=== PATIENT | female | born 1990 | race African-American/Black ===

== ENCOUNTER 2017-09-10 01:10 | Emergency (ER) | payer SELFPAY ==
[2017-09-10] MEDS ORDERED: SODIUM CHLORIDE 1,000 ML IV STA (01:40)
[2017-09-10] MEDS ORDERED: ONDANSETRON 4 MG/2 ML VIAL IVPB ONE (01:40)
[2017-09-10 01:50] LABS: BASO % 1.2 % (0-2.0); EOS % 0.8 % (0-4.5); HEMATOCRIT 37.7 % (32.4-45.2); HEMOGLOBIN 12.8 GM/dL (10.7-15.3); LYMPH % 43.1 % (8-40); MCH 30.5 pg (25.7-33.7); MCHC 34.1 g/dl (32.0-36.0); MEAN CELL VOLUME 89.5 fl (80-96); MEAN PLT VOLUME 8.6 fl (7.5-11.1); MONO % 7.4 % (3.8-10.2); NEUT % 47.5 % (42.8-82.8); PLATELET COUNT 252 K/MM3 (134-434); RBC 4.21 M/mm3 (3.60-5.2); RDW 12.4 % (11.6-15.6); WHITE BLOOD COUNT 7.7 K/mm3 (4.0-10.0)
--- NOTE | 2017-09-10 02:13 | PDOC ---
ED Treatment Course - LABORATORY CBC & Chemistry Diagram: 09/10/17 01:38 09/10/17 01:38 - ADDITIONAL ORDERS Additional order review: 09/10/17 01:38 RBC 4.21 MCV 89.5 MCHC 34.1 RDW 12.4 MPV 8.6 Neutrophils % 47.5 Lymphocytes % 43.1 H Monocytes % 7.4 Eosinophils % 0.8 Basophils % 1.2 - Medications Given in the ED: ED Medications Discontinued Medications Generic Name Dose Route Start Last Admin Trade Name Angella PRN Reason Stop Dose Admin Ondansetron HCl 4 mg 09/10/17 01:40 09/10/17 01:54 Zofran Injection IVPB 09/10/17 01:41 4 mg ONCE ONE Administration Medical Decision Making - Medical Decision Making 09/10/17 02:12 Pt seen by the Advanced Practice Provider under my direct supervision Ancillary studies reviewed I agree with plan as outlined by the Advanced Practice Provider SERGO Manzano *DC/Admit/Observation/Transfer Diagnosis at time of Disposition: Hyperemesis arising during - Discharge Dispostion Disposition: HOME Condition at time of disposition: Stable - Prescriptions Prescriptions: Ondansetron [Zofran Odt -] 4 mg SL TID #20 od.tablet - Referrals Referrals: Michelle Naidu MD [Staff Physician] - - Patient Instructions Printed Discharge Instructions: DI for Hyperemesis Gravidarum Additional Instructions: Increase fluids Prescription: Zofran 4 mg ODT take 1 tablet every 6-8 hours as needed for nausea Be sure to follow-up with your geospatial information technologist Your beta hCG which is your hormone level due to your is 3892 You had a transvaginal ultrasound done today which shows early intrauterine prior to visualizing the pole It is recommended that you repeat the ultrasound sure the viability - Post Discharge Activity
--- NOTE | 2017-09-10 02:15 | PDOC ---
History of Present Illness - General Chief Complaint: Nausea/Vomiting Stated Complaint: 1 MONTH ?,VOMITING,CRAMPS Time Seen by Provider: 09/10/17 01:26 History Source: Patient Exam Limitations: No Limitations - History of Present Illness Initial Comments: 09/10/17 03:42 Best Contact: PCP: Dr. Baltazar/Anya, NETWORK SECURITY ANALYST: Dr. Melissa Clayton/Anya Pmhx:N/A Pshx:N/A Allergies:NKDA FH:N/A Social Hx: Cigarettes/ 0 Alcohol/ 0 Drugs/0 LMP:06/17/2017 Past History - Past Medical History Allergies/Adverse Reactions: Allergies Allergy/AdvReac Type Severity Reaction Status Date / Time No Known Allergies Allergy Verified 09/10/17 01:54 ED Treatment Course - LABORATORY CBC & Chemistry Diagram: 09/10/17 01:38 09/10/17 01:38 - ADDITIONAL ORDERS Additional order review: 09/10/17 01:38 RBC 4.21 MCV 89.5 MCHC 34.1 RDW 12.4 MPV 8.6 Neutrophils % 47.5 Lymphocytes % 43.1 H Monocytes % 7.4 Eosinophils % 0.8 Basophils % 1.2 - RADIOLOGY Radiology Studies Ordered: Category Date Time Status TRANSVAGINAL US PREG [US] Stat Ultrasound 09/10/17 01:39 Ordered Radiograph Interpretation: 09/10/17 03:44 Transvaginal US: Early IUP prior history of visualization of pole - Medications Given in the ED: ED Medications Discontinued Medications Generic Name Dose Route Start Last Admin Trade Name Freq PRN Reason Stop Dose Admin Ondansetron HCl 4 mg 09/10/17 01:40 09/10/17 01:54 Zofran Injection IVPB 09/10/17 01:41 4 mg ONCE ONE Administration *DC/Admit/Observation/Transfer Diagnosis at time of Disposition: Hyperemesis arising during - Discharge Dispostion Disposition: HOME Condition at time of disposition: Stable Decision to Admit order: No - Referrals Referrals: Michelle Naidu MD [Staff Physician] - - Patient Instructions Printed Discharge Instructions: DI for Hyperemesis Gravidarum Additional Instructions: Increase fluids Prescription: Zofran 4 mg ODT take 1 tablet every 6-8 hours as needed for nausea Be sure to follow-up with your rawhide bone roller Your beta hCG which is your hormone level due to your is 3892 You had a transvaginal ultrasound done today which shows early intrauterine prior to visualizing the pole It is recommended that you repeat the ultrasound sure the viability - Post Discharge Activity
[2017-09-10 02:29] LABS: ALBUMIN 4.2 g/dl (3.4-5.0); ANION GAP 7 (8-16); BLOOD UREA NITROGEN 13 mg/dL (7-18); CALCIUM 8.8 mg/dL (8.5-10.1); CHLORIDE 108 mmol/L (98-107); CO2 23 mmol/L (21-32); CREATININE 0.7 mg/dL (0.55-1.02); GLUCOSE,RANDOM 86 mg/dL (74-106); POTASSIUM 3.4 mmol/L (3.5-5.1); SGOT/AST 14 U/L (15-37); SGPT/ALT 12 U/L (12-78); SODIUM 138 mmol/L (136-145)
[2017-09-10 02:30] LABS: URINE APPEARANCE CLEAR; URINE BILIRUBIN NEGATIVE (<2.0 mg/dL); URINE COLOR DKYELLOW; URINE GLUCOSE (UA) NEGATIVE (NEGATIVE); URINE KETONE 1+ (NEGATIVE); URINE LEUK ESTERASE NEGATIVE (NEGATIVE); URINE NITRITE NEGATIVE (NEGATIVE)
[2017-09-10 02:42] LABS: URINE PROTEIN 1+ (NEGATIVE)
[2017-09-10 02:44] VITALS: BP 102/70; PULSE 95; TEMP 97.8; BMI 25.7
[2017-09-10 02:44] LABS: EPI CELLS RARE /HPF (FEW); URINE MUCUS MANY
[2017-09-10 02:45] LABS: ALK PHOS 74 U/L (45-117); BILIRUBIN,TOTAL 1.8 mg/dL (0.2-1.0); TOT PROT 7.7 g/dl (6.4-8.2)
[2017-09-10] MEDS ORDERED: POTASSIUM CHLORIDE TABS 20 MEQ TABLET.ER (FP) PO ONE ×3 (02:46→03:09)
[2017-09-10] MEDS ORDERED: SODIUM CHLORIDE 0.9% 500 ML INFUS.BAG IV ONE (03:11)
== END 2017-09-10 03:58 | disposition home or self-care (01) ==
LOC: JER 01:10
PROC: 3E033GC Introduction of Other Therapeutic Substance into Peripheral Vein, Percutaneous Approach (ICD-10-PCS; principal; 2017-09-10)
DX: O26.891 Other specified pregnancy related conditions, first trimester (principal); O21.0 Mild hyperemesis gravidarum; Z3A.01 Less than 8 weeks gestation of pregnancy
CPT/HCPCS: 36415; 76817-TC; 80053; 81003; 81015; 84702; 85025; 99281-25; J7030

== ENCOUNTER 2018-05-11 05:30 | Inpatient (IN) | payer OTHER ==
[2018-05-11] MEDS ORDERED: DEXTROSE 5%-LACTATED RINGERS 1,000 ML IV SCH (06:10)
[2018-05-11] MEDS ORDERED: OXYTOCIN 20 UNITS in 0.9% NS 20 UNIT/1,000 ML INFUS.BAG IV ONE ×2 (06:34→13:59)
[2018-05-11] MEDS ORDERED: LIDOCAINE HCL 1% PRESERVATIVE FREE - 30ML VIAL ONE (06:34)
[2018-05-11 06:54] LABS: BASO % 0.4 % (0-2.0); EOS % 0.9 % (0-4.5); HEMATOCRIT 29.9 % (32.4-45.2); HEMOGLOBIN 10.3 GM/dL (10.7-15.3); LYMPH % 31.8 % (8-40); MCH 28.7 pg (25.7-33.7); MCHC 34.5 g/dl (32.0-36.0); MEAN CELL VOLUME 83.2 fl (80-96); MEAN PLT VOLUME 9.4 fl (7.5-11.1); MONO % 6.8 % (3.8-10.2); NEUT % 60.1 % (42.8-82.8); PLATELET COUNT 178 K/MM3 (134-434); RBC 3.59 M/mm3 (3.60-5.2); RDW 14.7 % (11.6-15.6); WHITE BLOOD COUNT 7.6 K/mm3 (4.0-10.0)
[2018-05-11] MEDS ORDERED: AMPICILLIN SODIUM 2 GM VIAL ONE (06:54)
[2018-05-11] MEDS ORDERED: AMPICILLIN - 2 GM in SODIUM CHLORIDE 100 ML IVPB ONE (06:55)
[2018-05-11] MEDS ORDERED: BUTORPHANOL TARTRATE 1 MG/ML VIAL ONE ×2 (07:05)
[2018-05-11] MEDS ORDERED: PROMETHAZINE HCL 25 MG/1 ML VIAL ONE (07:07)
[2018-05-11 07:11] LABS: URINE APPEARANCE SLCLOUDY; URINE BILIRUBIN NEGATIVE (<2.0 mg/dL); URINE COLOR LTYELLOW; URINE GLUCOSE (UA) NEGATIVE (NEGATIVE); URINE KETONE NEGATIVE (NEGATIVE); URINE LEUK ESTERASE NEGATIVE (NEGATIVE); URINE NITRITE NEGATIVE (NEGATIVE); URINE PROTEIN NEGATIVE (NEGATIVE); URINE UROBILINOGEN NEGATIVE mg/dL (0.2-1.0)
[2018-05-11 07:15] LABS: INR 1.01 (0.83-1.09); PROTHROMBIN TIME (PATIENT) 11.9 SEC (9.7-13.0)
[2018-05-11 07:20] VITALS: BMI 30.2
[2018-05-11 07:21] LABS: EPI CELLS FEW /HPF (FEW); URINE MUCUS RARE
[2018-05-11 07:26] LABS: ALBUMIN 2.8 g/dl (3.4-5.0); ALK PHOS 204 U/L (45-117); ANION GAP 10 MMOL/L (8-16); BILIRUBIN,TOTAL 0.3 mg/dL (0.2-1); BLOOD UREA NITROGEN 7 mg/dL (7-18); CALCIUM 8.7 mg/dL (8.5-10.1); CHLORIDE 108 mmol/L (98-107); CO2 21 mmol/L (21-32); CREATININE 0.6 mg/dL (0.55-1.3); GLUCOSE,RANDOM 121 mg/dL (74-106); POTASSIUM 3.6 mmol/L (3.5-5.1); SGOT/AST 11 U/L (15-37); SGPT/ALT 10 U/L (13-61); SODIUM 138 mmol/L (136-145); TOT PROT 6.2 g/dl (6.4-8.2)
--- NOTE | 2018-05-11 07:40 | HP ---
Past Medical History - Primary Care Physician PCP:: Izaiah Hyman - Admission Chief Complaint: 39 weeks, labor History of Present Illness: 27 yo f , edc by sono 05/13/18 39.5 weeks in labor , cx 8 cm, 80 vx 0 mi , fhr cat 1, contraction irregular , care [facility] History Source: Patient Limitations to Obtaining History: No Limitations - Past Medical History ...: 3 ...Para: 1 ...Term: 0 ...: 1 ...Spon : 0 ...Induced : 1 ...Multiple Gestation: 0 ...LMP: 07/14/17 ... Weeks Gestation by Dates: 43.0 ...EDC by Dates: 04/20/18 ...EDC by Sono: 05/13/18 Heme/Onc: Yes: Anemia Endocrine: Yes: Hypothyroidism (0n no meds) - Past Surgical History Hx Myomectomy: No Hx Transabdominal Cerclage: No - Smoking History Smoking history: Never smoked Have you smoked in the past 12 months: No - Alcohol/Substance Use Hx Alcohol Use: No History of Substance Use: reports: Marijuana - Social History History of Recent Travel: No Home Medications - Allergies Allergies/Adverse Reactions: Allergies Allergy/AdvReac Type Severity Reaction Status Date / Time No Known Allergies Allergy Verified 09/10/17 01:54 - Home Medications Home Medications: Ambulatory Orders Ondansetron [Zofran Odt -] 4 mg SL TID #20 od.tablet 09/10/17 Review of Systems - Review of Systems Constitutional: reports: No Symptoms Eyes: reports: No Symptoms HENT: reports: No Symptoms Neck: reports: No Symptoms Cardiovascular: reports: No Symptoms Respiratory: reports: No Symptoms Gastrointestinal: reports: No Symptoms Genitourinary: reports: No Symptoms Breasts: reports: No Symptoms Reported Musculoskeletal: reports: No Symptoms Integumentary: reports: No Symptoms Neurological: reports: No Symptoms Endocrine: reports: No Symptoms Hematology/Lymphatic: reports: No Symptoms Psychiatric: reports: No Symptoms Physical Exam - Maternity Vital Signs: Vital Signs Temperature 98.4 F 05/11/18 06:10 Pulse Rate 93 H 05/11/18 06:10 Respiratory Rate 20 05/11/18 06:10 Blood Pressure 129/68 05/11/18 06:10 O2 Sat by Pulse Oximetry (%) Constitutional: Yes: Well Nourished, No Distress, Calm Eyes: Yes: WNL, Conjunctiva Clear, EOM Intact HENT: Yes: WNL, Atraumatic, Normocephalic Neck: Yes: WNL, Supple, Trachea Midline Cardiovascular: Yes: WNL, Regular Rate and Rhythm Breast(s): Yes: WNL - Abdominal Exam/OB Fundal Height: 38 Number of Fetuses: Single Presentation: Vertex Contractions: Yes Regularity: Irregular Intensity: Mod/Strong Monitor Mode: External Heart Rate Location: [facility] Category: I Accelerations: Uniform Decelerations: None - Vaginal Exam/OB Vaginal Bleediing: No Speculum Exam: No Dilatation (cm): 8 cm Effacement (%): 80 Amniotic Membrane Status: Bulging Presentation: Vertex/Position Station: -1 - Physical Exam Musculoskeletal: Yes: WNL Extremities: Yes: WNL Edema: Yes Edema: LLE: Trace, RLE: Trace Deep Tendon Reflex Grade: Normal +2 Psychiatric: Yes: WNL - Labs Lab Results: CBC, BMP 05/11/18 06:25 05/11/18 06:25 Hemorrhage Risk Assessment - Risk Factors Medium Risk Factors: Yes: None High Risk Factors: Yes: None Risk Score: 1 Risk Level: Medium Risk Problem List - Problems (1) with 39 completed weeks gestation Code(s): Z3A.39 - 39 WEEKS GESTATION OF (2) Labor established Code(s): DQY2197 - Assessment/Plan plan admit, FHM . anticipate vaginal delivery
[2018-05-11 07:56] LABS: COCAINE, UR NEGATIVE ng/ml (CUTOFF=300); METHADONE, UR NEGATIVE ng/ml (CUTOFF=300); OPIATES, URI NEGATIVE ng/ml (CUTOFF=300); PHENCYCLIDINE,URINE NEGATIVE ng/ml (CUTOFF=25); URINE AMPHETAMINES NEGATIVE ng/ml (CUTOFF=500); URINE BARBITURATES NEGATIVE ng/ml (CUTOFF=200); URINE BENZODIAZEPINES NEGATIVE ng/ml (CUTOFF=200)
[2018-05-11] MEDS ORDERED: OXYTOCIN 30 UNITS in 0.9% NS 30 UNIT/500 ML INFUS.BAG IVPB SCH (08:00)
[2018-05-11] MEDS ORDERED: WITCH HAZEL 50% (TUCKS) 40 PAD/JAR PAD TP PRN (08:49)
[2018-05-11] MEDS ORDERED: BENZOCAINE 20% 57 GM BOTTLE TP PRN (08:49)
[2018-05-11] MEDS ORDERED: BENZOCAINE 28 GM HEMORRHOIDAL OINTMENT TP PRN (08:49)
[2018-05-11] MEDS ORDERED: METHYLERGONOVINE MALEATE 0.2 MG/1 ML AMP IM PRN (08:49)
[2018-05-11] MEDS ORDERED: BISACODYL 10 MG SUPP.RECT RC PRN (08:49)
[2018-05-11] MEDS ORDERED: OXYTOCIN 20 UNITS in 0.9% NS 20 UNIT/1,000 ML INFUS.BAG IV SCH ×2 (09:00→16:00)
[2018-05-11 09:38] LABS: ARTERIAL BLOOD GAS BASE EXCESS -2.1 meq/l (-2-2); ARTERIAL BLOOD GAS PCO2 52.2 mmHg (35-45); ARTERIAL BLOOD GAS PO2 32.1 mmHg (80-100); ARTERIAL BLOOD GAS pH 7.3 (7.35-7.45)
[2018-05-11 09:39] LABS: VENOUS PC02 47.1 mmHg (38-52); VENOUS PH 7.32 (7.32-7.42); VENOUS PO2 35.5 mmHg (28-48)
[2018-05-11] MEDS ORDERED: TUBERCULIN PPD 5 TU/0.1ML SYRINGE (IN PATIENT USE ONLY) ID ONE (10:00)
[2018-05-11] MEDS: PRENATAL VITAMINS W/ FOLIC ACID TABLET (FP) PO SCH (10:00)
[2018-05-11] MEDS ORDERED: PROMETHAZINE HCL 25 MG/1 ML VIAL IVPB ONE (10:30)
[2018-05-11] MEDS ORDERED: BUTORPHANOL TARTRATE 2 MG/ML VIAL IVPUSH ONE (10:30)
[2018-05-11] MEDS: AMPICILLIN - 1 GM in SODIUM CHLORIDE 100 ML IVPB SCH ×3 (11:00→18:44)
[2018-05-11] MEDS: ACETAMINOPHEN 325 MG TABLET (FP) PO PRN ×2 (14:52→20:22)
[2018-05-11] MEDS: IBUPROFEN 600 MG TABLET (FP) PO PRN ×2 (14:52→20:23)
[2018-05-11] MEDS: FERROUS SO4 325 MG TABLET (FP) PO SCH (17:26)
[2018-05-12 05:26] LABS: HBsAG SCREEN Negative (Negative)
[2018-05-12 07:15] LABS: BASO % 0.5 % (0-2.0); EOS % 1.3 % (0-4.5); HEMATOCRIT 27.3 % (32.4-45.2); HEMOGLOBIN 9.5 GM/dL (10.7-15.3); MCH 28.6 pg (25.7-33.7); MCHC 34.8 g/dl (32.0-36.0); MEAN CELL VOLUME 82.2 fl (80-96); MEAN PLT VOLUME 9.6 fl (7.5-11.1); MONO % 8.7 % (3.8-10.2); NEUT % 62.5 % (42.8-82.8); PLATELET COUNT 172 K/MM3 (134-434); RBC 3.33 M/mm3 (3.60-5.2); RDW 14.4 % (11.6-15.6); WHITE BLOOD COUNT 9.8 K/mm3 (4.0-10.0)
[2018-05-12 08:06] LABS: RUBELLA IgG ANTIBODY < 0.90 index (Immune >0.99)
[2018-05-12] MEDS: FERROUS SO4 325 MG TABLET (FP) PO SCH ×2 (08:16→17:28)
[2018-05-12] MEDS: PRENATAL VITAMINS W/ FOLIC ACID TABLET (FP) PO SCH (09:12)
--- NOTE | 2018-05-12 11:13 | PN ---
Progress Note (short form) - Note Progress Note: ppd 1 no c/o ,voids ok, no excess vaginal bleeding CBC, BMP 05/12/18 06:00 05/11/18 06:25 Last Vital Signs Temp Pulse Resp BP Pulse Ox 97.8 F 84 18 99/59 L 99 05/12/18 07:10 05/12/18 07:10 05/12/18 07:10 05/12/18 07:10 05/11/18 10:00 abdomen soft, no distension , no cva lochia mild no calf tenderness plan ambulate, iron, vit plan for d/c home in am Problem List - Problems (1) with 39 completed weeks gestation Code(s): Z3A.39 - 39 WEEKS GESTATION OF (2) Labor established Code(s): CLM2991 -
[2018-05-12] MEDS ORDERED: SENNOSIDES/DOCUSATE COMBO (SENNA PLUS) TABLET (UD) PO PRN (22:00)
[2018-05-12] MEDS: IBUPROFEN 600 MG TABLET (FP) PO PRN (22:17)
[2018-05-12] MEDS: ACETAMINOPHEN 325 MG TABLET (FP) PO PRN (22:18)
[2018-05-13] MEDS: FERROUS SO4 325 MG TABLET (FP) PO SCH (08:02)
[2018-05-13 08:23] VITALS: BP 114/67; PULSE 94; TEMP 98.4
--- NOTE | 2018-05-13 09:10 | DS ---
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 Vital Signs: Vital Signs Temperature 98.4 F 05/13/18 07:10 Pulse Rate 94 H 05/13/18 07:10 Respiratory Rate 18 05/13/18 07:10 Blood Pressure 114/67 05/13/18 07:10 O2 Sat by Pulse Oximetry (%) 99 05/11/18 10:00 Constitutional: Yes: Well Nourished, No Distress, Calm Eyes: Yes: WNL, Conjunctiva Clear, EOM Intact HENT: Yes: WNL, Atraumatic, Normocephalic Neck: Yes: WNL, Supple, Trachea Midline Cardiovascular: Yes: WNL, Regular Rate and Rhythm Respiratory: Yes: WNL, Regular, CTA Bilaterally Gastrointestinal: Yes: WNL ...Rectal Exam: Yes: WNL Renal/: Yes: WNL External Genitalia: Yes: Normal ....Post : Yes: Uterus firm, Uterus non-tender, Slight lochia rubra Breast(s): Yes: WNL Musculoskeletal: Yes: WNL Extremities: Yes: WNL Edema: No Integumentary: Yes: WNL Neurological: Yes: WNL, Alert, Oriented ...Motor Strength: WNL Psychiatric: Yes: WNL, Alert, Oriented Labs: CBC, BMP 05/12/18 06:00 05/11/18 06:25 Delivery - Delivery Vaginal Delivery: Spontaneous (no complication) Type of Anesthesia: None Episiotomy/Laceration: None EBL (cc): 300 Delivery, Single - Stages of Labor Date 1st Stage Initiatied: 05/11/18 Time 1st Stage Initiated: 05:00 Date 2nd Stage Initiated: 05/11/18 Time 2nd Stage Initiated: 08:10 Date of Delivery: 05/11/18 Time of Delivery: 08:40 Time Placenta Delivered: 08:45 Placenta: Yes: Spontaneous - Condition of Infant 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/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 Present: No Infant Gender: Male Weight: 8 lb 9 oz Position: Left, OA Total Hours ROM (Hrs/Mins): 1HR- 15 - 1 Minute Total Score: 9 5 Minutes Total Score: 9 - Feeding Plan Initial Plan: Elected not to breastfeed exclusively throughout hospitalization Discharge Summary Reason For Visit: LABOR ADMIT Current Active Problems Labor established (Acute) with 39 completed weeks gestation (Acute) Procedures: Principal: Hospital Course: no complication Condition: Good - Instructions Diet, Activity, Other Instructions: regular diet, follow up [facility] 4 weeks, no intercourse, if pain, fever,heavy vaginal bleeding call [facility] [phone] Referrals: Izaiah Hyman MD [Family Provider] - Disposition: HOME - Home Medications Comprehensive Discharge Medication List: Ambulatory Orders Ondansetron [Zofran Odt -] 4 mg SL TID #20 od.tablet 09/10/17 Ibuprofen [Motrin -] 600 mg PO QID #28 tablet 05/12/18
[2018-05-13] MEDS: PRENATAL VITAMINS W/ FOLIC ACID TABLET (FP) PO SCH (09:46)
== END 2018-05-13 12:45 | disposition home or self-care (01) | DRG 560 ==
LOC: JDEL 05:30 → JLDR 06:10 → J3W 14:00
PROVIDERS: ADMIT Obstetrics & Gynecology; ATTEND Obstetrics & Gynecology
PROC: 10E0XZZ Delivery of Products of Conception, External Approach (ICD-10-PCS; principal; 2018-05-11)
DX: O80 Encounter for full-term uncomplicated delivery (principal); Z3A.39 39 weeks gestation of pregnancy; Z37.0 Single live birth
CPT/HCPCS: 36415; 36600; 59409; 80053; 80307; 81003; 81015; 82803; 85025; 85610; 85730; 86593; 86762; 86850; 86900; 86901; 87340; 87389

== ENCOUNTER 2019-02-05 20:44 | Emergency (ER) | payer OTHER ==
[2019-02-05 20:57] VITALS: BP 107/81; PULSE 100; TEMP 98.1; BMI 28.9
--- NOTE | 2019-02-05 21:15 | PDOC ---
History of Present Illness - General Chief Complaint: Toothache Stated Complaint: TOOTHACHE Time Seen by Provider: 02/05/19 21:03 - History of Present Illness Initial Comments: 02/05/19 21:13 28-year-old female shows me there is no chance of presents for evaluation of right lower wisdom tooth pain. She has an appointment for an oral surgeon tomorrow and she is on amoxicillin she is unable to tolerate the pain at home. No systemic symptoms. Past History - Past Medical History Allergies/Adverse Reactions: Allergies Allergy/AdvReac Type Severity Reaction Status Date / Time No Known Allergies Allergy Verified 02/05/19 20:57 Home Medications: Ambulatory Orders Ondansetron [Zofran Odt -] 4 mg SL TID #20 od.tablet 09/10/17 Ibuprofen [Motrin -] 600 mg PO QID #28 tablet 05/12/18 Asthma: No Cancer: No Cardiac Disorders: No COPD: No Diabetes: No HTN: No Seizures: No Thyroid Disease: Yes - Psycho Social/Smoking Cessation Hx Smoking History: Never smoked Have you smoked in the past 12 months: No Information on smoking cessation initiated: No Hx Alcohol Use: No Drug/Substance Use Hx: No Hx Substance Use Treatment: No Review of Systems - Review of Systems Constitutional: No: Fever HEENTM: Yes: See HPI, Dental Problems *Physical Exam - Vital Signs Last Vital Signs Temp Pulse Resp BP Pulse Ox 98.1 F 100 H 21 H 107/81 100 02/05/19 20:55 02/05/19 20:55 02/05/19 20:55 02/05/19 20:55 02/05/19 20:55 - Physical Exam Comments: 02/05/19 21:14 GENERAL: The patient is awake, alert, and fully oriented, in no acute distress. HEAD: Normal with no signs of trauma. EYES: sclera anicteric, conjunctiva clear. Mouth: Right lower wisdom tooth appears to be coming in, no indication of infection NEUROLOGICAL: Cranial nerves II through XII grossly intact. Normal speech, normal gait. PSYCH: Normal mood, normal affect. SKIN: Warm, Dry, normal turgor, no rashes or lesions noted. Medical Decision Making - Medical Decision Making 02/05/19 21:14 We will treat with Percocet in the emergency room patient can continue Motrin at home and her antibiotic and follow-up with oral surgeon in the morning. Discharge - Discharge Information Problems reviewed: Yes Clinical Impression/Diagnosis: Pain, dental Condition: Stable Disposition: HOME - Admission No - Follow up/Referral - Patient Discharge Instructions Additional Instructions: Please follow-up with your oral surgeon in the morning as directed return to the emergency room for worsening symptoms. Continue with your Motrin at home as directed. Follow-up with your oral surgeon tomorrow without fail. - Post Discharge Activity
== END 2019-02-05 21:19 | disposition home or self-care (01) ==
LOC: JERFT 20:44
DX: K08.89 Other specified disorders of teeth and supporting structures (principal)
CPT/HCPCS: 99281-25

== ENCOUNTER 2019-04-06 22:28 | Emergency (ER) | payer OTHER ==
[2019-04-06 22:32] VITALS: TEMP 98; BMI 28.9
--- NOTE | 2019-04-06 23:01 | PDOC ---
History of Present Illness <Roselyn Smith - Last Filed: 04/07/19 00:46> - General History Source: Patient Exam Limitations: No Limitations - History of Present Illness Initial Comments: 28-year-old female with past medical history of thyroid disease (first was high then low) presented to the emergency department for nausea and vomiting beginning today. She reported that she has had two days of increased sneezing, then she developed diffuse body aches and a headache. She reported she was unable to keep any food down today. She reported feeling sweats and chills, but did not take her temperature. 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 She admitted to suprapubic pain that she felt when she was vomiting. She denied diarrhea, blood in stool, chest pain, shortness of breath, cough, sore throat, dysuria, vaginal bleeding, vaginal discharge, pelvic pain, history of STDs. She reported she did not take any medication today for her symptoms ROS General: admitted to sweats, chills, generalized weakness. denied fever. HEENT: admitted to sneezing. denied sore throat, rhinorrhea, ear pain. Cardiovascular: denied chest pain, palpitations, syncope, diaphoresis. Respiratory: denied shortness of breath, cough, sputum production, hemoptysis. Gastrointestinal: admitted to abdominal pain, nausea, vomiting. denied diarrhea , constipation, blood in stool. Genitourinary: denied dysuria, increased urinary frequency, hematuria, urinary incontinence, flank pain, vaginal bleeding, vaginal discharge. Back: denied back pain. Musculoskeletal: denied joint pain, muscle pain, joint swelling. Neurological: admitted to headache. denied dizziness, numbness, tingling, weakness. Integumentary: denied rash, laceration, abrasion. Hematologic/Lymphatic: denied bruising or bleeding. PE Constitutional: Well-nourished, Well-developed, appearing stated age. HEENT: head is normocephalic, atraumatic. EOMI. PERRLA. dry mucous membranes. Neck: supple. Full ROM. Cardiovascular: regular heart rhythm. no murmurs. no pericardial friction rub. Respiratory: clear to auscultation bilaterally. no crackles, rhonchi or wheezing. no stridor. Gastrointestinal: soft, flat. tender to palpation in LUQ. normal bowel sounds. no rebound, guarding, masses. Extremities: peripheral pulses intact. no lower extremity edema. Neurological: CN 2-12 grossly intact. moves all four extremities. Psych: awake, alert, oriented x3. follows commands. answers questions appropriately. <Dina Chapman - Last Filed: 04/07/19 18:42> - General Chief Complaint: Respiratory Stated Complaint: FLU LIKE SYMPTOMS Time Seen by Provider: 04/06/19 23:01 Past History <Roselyn Smith - Last Filed: 04/07/19 00:46> - Psycho Social/Smoking Cessation Hx Smoking History: Current every day smoker Have you smoked in the past 12 months: No Information on smoking cessation initiated: No Hx Alcohol Use: No Drug/Substance Use Hx: No Hx Substance Use Treatment: No <Dina Chapman - Last Filed: 04/07/19 18:42> - Past Medical History Allergies/Adverse Reactions: Allergies Allergy/AdvReac Type Severity Reaction Status Date / Time No Known Allergies Allergy Verified 04/06/19 22:32 Home Medications: Ambulatory Orders Ondansetron [Zofran Odt -] 4 mg SL TID #20 od.tablet 09/10/17 Ibuprofen [Motrin -] 600 mg PO QID #28 tablet 05/12/18 *Physical Exam - Vital Signs Last Vital Signs Temp Pulse Resp BP Pulse Ox 98 F 52 L 18 117/80 99 04/06/19 22:30 04/06/19 22:30 04/06/19 22:30 04/06/19 22:30 04/06/19 23:14 <Roselyn Smith - Last Filed: 04/07/19 00:46> - Vital Signs Last Vital Signs Temp Pulse Resp BP Pulse Ox 98 F 52 L 18 117/80 99 04/06/19 22:30 04/06/19 22:30 04/06/19 22:30 04/06/19 22:30 04/06/19 22:30 <Dina Chapman - Last Filed: 04/07/19 18:42> ED Treatment Course - LABORATORY CBC & Chemistry Diagram: 04/06/19 23:06 04/06/19 23:06 - ADDITIONAL ORDERS Additional order review: Laboratory Results 04/06/19 04/06/19 04/06/19 23:50 23:06 23:06 Sodium 139 Potassium 4.3 Chloride 109 H Carbon Dioxide 21 Anion Gap 8 BUN 12.5 Creatinine 0.7 Est GFR (CKD-EPI)AfAm 136.66 Est GFR (CKD-EPI)NonAf 117.91 Random Glucose 93 Calcium 9.0 Magnesium 2.1 Total Bilirubin 0.4 AST 25 ALT 19 Alkaline Phosphatase 87 Total Protein 7.1 Albumin 3.4 Lipase 124 TSH 3.22 Serum , Qual Negative Urine Color Yellow Urine Appearance Clear Urine pH 6.0 Ur Specific [place] 1.027 Urine Protein Negative Urine Glucose (UA) Negative Urine Ketones Negative Urine Blood Negative Urine Nitrite Negative Urine Bilirubin Negative Urine Urobilinogen 1.0 Ur Leukocyte Esterase Negative 04/06/19 23:06 RBC 4.35 MCV 89.9 MCHC 33.0 RDW 12.8 D MPV 9.6 Neutrophils % 45.7 D Lymphocytes % 46.3 H D Monocytes % 5.5 Eosinophils % 1.9 Basophils % 0.6 - Medications Given in the ED: ED Medications Discontinued Medications Generic Name Dose Route Start Last Admin Trade Name Angella PRN Reason Stop Dose Admin Acetaminophen 1,000 mg 04/06/19 23:14 04/06/19 23:27 Ofirmev Injection - IVPB 04/06/19 23:15 1,000 mg ONCE ONE Administration Al Hydroxide/Mg Hydroxide 30 ml 04/06/19 23:14 04/06/19 23:27 Mylanta Oral Suspension - PO 04/06/19 23:15 30 ml ONCE ONE Administration Famotidine/Sodium Chloride 20 mg in 50 mls @ 100 mls/hr 04/06/19 23:14 00:41 Pepcid 20 Mg Premixed Ivpb - IVPB 04/06/19 23:43 100 mls/hr ONCE ONE Administration Sodium Chloride 1,000 mls @ 1,000 mls/hr 04/06/19 23:14 04/06/19 23:27 Normal Saline - IV 04/07/19 00:13 1,000 mls/hr ASDIR STA Administration Ondansetron HCl 4 mg 04/06/19 23:14 04/06/19 23:28 Zofran Injection IVPUSH 04/06/19 23:15 4 mg ONCE ONE Administration <Roselyn Smith - Last Filed: 04/07/19 00:46> - LABORATORY CBC & Chemistry Diagram: 04/06/19 23:06 04/06/19 23:06 <AriMarcosDina - Last Filed: 04/07/19 18:42> Medical Decision Making - Medical Decision Making 28 year old female with above PMH presented to the ED for nausea, vomiting, headache, body aches, increased sneezing. Initial Vital Signs Temp Pulse Resp BP Pulse Ox 98 F 52 L 18 117/80 99 04/06/19 22:30 04/06/19 22:30 04/06/19 22:30 04/06/19 22:30 04/06/19 22:30 Afebrile. Bradycardia, may be normal for age. No tachypnea. No hypotension. No hypoxia on room air. Labs ordered: CBC, CMP, Lipase, Mg, Influenza, UA/UC, serum Imaging ordered: none Medications ordered: pepcid, maalox, zofran, normal saline bolus 1000 cc once, tylenol IV 04/07/19 00:26 Laboratory Last Values WBC 7.2 K/mm3 (4.0-10.0) 04/06/19 23:06 RBC 4.35 M/mm3 (3.60-5.2) 04/06/19 23:06 Hgb 12.9 GM/dL (10.7-15.3) 04/06/19 23:06 Hct 39.1 % (32.4-45.2) D 04/06/19 23:06 MCV 89.9 fl (80-96) 04/06/19 23:06 MCH 29.6 pg (25.7-33.7) 04/06/19 23:06 MCHC 33.0 g/dl (32.0-36.0) 04/06/19 23:06 RDW 12.8 % (11.6-15.6) D 04/06/19 23:06 Plt Count 254 K/MM3 (134-434) D 04/06/19 23:06 MPV 9.6 fl (7.5-11.1) 04/06/19 23:06 Absolute Neuts (auto) 3.3 K/mm3 (1.5-8.0) 04/06/19 23:06 Neutrophils % 45.7 % (42.8-82.8) D 04/06/19 23:06 Lymphocytes % 46.3 % (8-40) H D 04/06/19 23:06 Monocytes % 5.5 % (3.8-10.2) 04/06/19 23:06 Eosinophils % 1.9 % (0-4.5) 04/06/19 23:06 Basophils % 0.6 % (0-2.0) 04/06/19 23:06 Nucleated RBC % 0 % (0-0) 04/06/19 23:06 Sodium 139 mmol/L (136-145) 04/06/19 23:06 Potassium 4.3 mmol/L (3.5-5.1) 04/06/19 23:06 Chloride 109 mmol/L (98-107) H 04/06/19 23:06 Carbon Dioxide 21 mmol/L (21-32) 04/06/19 23:06 Anion Gap 8 MMOL/L (8-16) 04/06/19 23:06 BUN 12.5 mg/dL (7-18) 04/06/19 23:06 Creatinine 0.7 mg/dL (0.55-1.3) 04/06/19 23:06 Est GFR (CKD-EPI)AfAm 136.66 04/06/19 23:06 Est GFR (CKD-EPI)NonAf 117.91 04/06/19 23:06 Random Glucose 93 mg/dL (74-106) 04/06/19 23:06 Calcium 9.0 mg/dL (8.5-10.1) 04/06/19 23:06 Magnesium 2.1 mg/dL (1.8-2.4) 04/06/19 23:06 Total Bilirubin 0.4 mg/dL (0.2-1) 04/06/19 23:06 AST 25 U/L (15-37) 04/06/19 23:06 ALT 19 U/L (13-61) 04/06/19 23:06 Alkaline Phosphatase 87 U/L (45-117) 04/06/19 23:06 Total Protein 7.1 g/dl (6.4-8.2) 04/06/19 23:06 Albumin 3.4 g/dl (3.4-5.0) 04/06/19 23:06 Lipase 124 U/L (73-393) 04/06/19 23:06 TSH 3.22 uIU/ml (0.358-3.74) 04/06/19 23:06 Serum , Qual Negative 04/06/19 23:06 Urine Color Yellow 04/06/19 23:50 Urine Appearance Clear 04/06/19 23:50 Urine pH 6.0 (5.0-8.0) 04/06/19 23:50 Ur Specific [place] 1.027 (1.010-1.035) 04/06/19 23:50 Urine Protein Negative (NEGATIVE) 04/06/19 23:50 Urine Glucose (UA) Negative (NEGATIVE) 04/06/19 23:50 Urine Ketones Negative (NEGATIVE) 04/06/19 23:50 Urine Blood Negative (NEGATIVE) 04/06/19 23:50 Urine Nitrite Negative (NEGATIVE) 04/06/19 23:50 Urine Bilirubin Negative (NEGATIVE) 04/06/19 23:50 Urine Urobilinogen 1.0 mg/dL (0.2-1.0) 04/06/19 23:50 Ur Leukocyte Esterase Negative (NEGATIVE) 04/06/19 23:50 Influenza A (Rapid) Negative (Negative) 04/06/19 23:35 Influenza B (Rapid) Negative (Negative) 04/06/19 23:35 Medications ordered: toradol 04/07/19 00:53 Pt reported improvement of symptoms, pt given results, pt discharged. <Dina Chapman - Last Filed: 04/07/19 18:42> Discharge <Roselyn Smith - Last Filed: 04/07/19 00:46> - Discharge Information Problems reviewed: Yes - Admission No <Dina Chapman - Last Filed: 04/07/19 18:42> - Discharge Information Clinical Impression/Diagnosis: Viral syndrome Condition: Improved Disposition: HOME - Patient Discharge Instructions Patient Printed Discharge Instructions: DI for Viral Syndrome Additional Instructions: Follow up with your primary care doctor within 3 days regarding your Emergency Room visit. Your care is not complete until you follow up. Take Tylenol over the counter for headache. Take as advised on label. Take Ibuprofen over the counter for body aches. Take as as advised on label. Take with food as this can irritate your stomach. Drink lots of fluids - pedialyte/gatorade - to stay hydrated. Return to the Emergency Department for increasing pain, chest pain, shortness of breath, continuous vomiting, fever>103F, fever>5 days or any other new, worsening or concerning symptoms. - Post Discharge Activity Work/Back to School Note: Back to Work
[2019-04-06] MEDS ORDERED: ACETAMINOPHEN 1000 MG/100 ML VIAL (NON FORMULARY) IVPB ONE (23:14)
[2019-04-06] MEDS ORDERED: ONDANSETRON 4 MG/2 ML VIAL IVPUSH ONE (23:14)
[2019-04-06] MEDS ORDERED: FAMOTIDINE 20 MG/50 ML IVPB 20 MG/50 ML MG IVPB ONE ×3 (23:14→23:22)
[2019-04-06] MEDS ORDERED: SODIUM CHLORIDE 1,000 ML IV STA (23:14)
[2019-04-06] MEDS ORDERED: MAG HYDROX/AL HYDROX/SIMETH 30 ML UNIT-DOSE CUP PO ONE (23:14)
[2019-04-06] MEDS ORDERED: ACETAMINOPHEN INJECTION 100 ML IVPB ONE (23:18)
[2019-04-06] MEDS ORDERED: ONDANSETRON 4 MG/2 ML VIAL ONE (23:19)
[2019-04-06] MEDS ORDERED: MAG HYDROX/AL HYDROX/SIMETH 30 ML UNIT-DOSE CUP ONE (23:19)
--- NOTE | 2019-04-06 23:22 | PDOC ---
Attending Attestation - Resident Resident Name: Dina Chapman - ED Attending Attestation I have performed the following: I have examined & evaluated the patient, The case was reviewed & discussed with the resident, I agree w/resident's findings & plan - HPI HPI: 04/06/19 23:29 Pt works at a [employer] and she has fever and chills and flu like symptoms and nausea and vomiting. - Physicial Exam PE: 04/06/19 23:29 Agree with resident exam Pt appears tired. Lips are dry; heart S1S2 RRR Lungs clear abd soft NT ND no flank pain ext no swelling and no rash on body Neuro No gross focal deficits Pt has normal HEENT - Medical Decision Making 04/06/19 23:30 HYdration given Labs pending 04/07/19 20:09 Labs normal; pt hydrated and feeling better and she will be discharged home with rest and diagnosis of viral syndrome 04/07/19 20:09 Pt has no influenza
[2019-04-06 23:42] LABS: BASO % 0.6 % (0-2.0); EOS % 1.9 % (0-4.5); HEMATOCRIT 39.1 % (32.4-45.2); HEMOGLOBIN 12.9 GM/dL (10.7-15.3); LYMPH % 46.3 % (8-40); MCH 29.6 pg (25.7-33.7); MEAN CELL VOLUME 89.9 fl (80-96); MEAN PLT VOLUME 9.6 fl (7.5-11.1); MONO % 5.5 % (3.8-10.2); NEUT % 45.7 % (42.8-82.8); PLATELET COUNT 254 K/MM3 (134-434); RBC 4.35 M/mm3 (3.60-5.2); RDW 12.8 % (11.6-15.6); WHITE BLOOD COUNT 7.2 K/mm3 (4.0-10.0)
[2019-04-06 23:57] LABS: URINE APPEARANCE CLEAR; URINE BILIRUBIN NEGATIVE (NEGATIVE); URINE COLOR YELLOW; URINE GLUCOSE (UA) NEGATIVE (NEGATIVE); URINE KETONE NEGATIVE (NEGATIVE); URINE LEUK ESTERASE NEGATIVE (NEGATIVE); URINE NITRITE NEGATIVE (NEGATIVE); URINE PROTEIN NEGATIVE (NEGATIVE)
[2019-04-07 00:22] LABS: ALBUMIN 3.4 g/dl (3.4-5.0); BILIRUBIN,TOTAL 0.4 mg/dL (0.2-1); BLOOD UREA NITROGEN 12.5 mg/dL (7-18); CREATININE 0.7 mg/dL (0.55-1.3); MAGNESIUM 2.1 mg/dL (1.8-2.4); POTASSIUM 4.3 mmol/L (3.5-5.1); TOT PROT 7.1 g/dl (6.4-8.2)
[2019-04-07] MEDS ORDERED: KETOROLAC TROMETHAMINE 30 MG/1 ML VIAL IVPUSH ONE (00:38)
[2019-04-07] MEDS ORDERED: KETOROLAC TROMETHAMINE 30 MG/1 ML VIAL ONE (00:44)
[2019-04-07 00:59] VITALS: BP 123/78; PULSE 85
== END 2019-04-07 00:58 | disposition home or self-care (01) ==
LOC: JER 22:28
PROC: 3E033GC Introduction of Other Therapeutic Substance into Peripheral Vein, Percutaneous Approach (ICD-10-PCS; principal; 2019-04-06)
PROC: 3E033GC Introduction of Other Therapeutic Substance into Peripheral Vein, Percutaneous Approach (ICD-10-PCS; 2019-04-06)
PROC: 3E0333Z Introduction of Anti-inflammatory into Peripheral Vein, Percutaneous Approach (ICD-10-PCS; 2019-04-06)
PROC: 3E033NZ Introduction of Analgesics, Hypnotics, Sedatives into Peripheral Vein, Percutaneous Approach (ICD-10-PCS; 2019-04-06)
DX: B34.9 Viral infection, unspecified (principal); R00.1 Bradycardia, unspecified; E03.9 Hypothyroidism, unspecified; F17.210 Nicotine dependence, cigarettes, uncomplicated
CPT/HCPCS: 36415; 80053; 81003; 83690; 83735; 84443; 84703; 85025; 87086; 87804; 99284-25; J0131; J7030

== ENCOUNTER 2019-06-24 20:53 | Emergency (ER) | payer OTHER ==
[2019-06-24 21:27] VITALS: BMI 29.9
--- NOTE | 2019-06-24 22:18 | PDOC ---
*Physical Exam - Vital Signs Last Vital Signs Temp Pulse Resp BP Pulse Ox 98.5 F 87 18 108/66 100 06/24/19 21:23 06/24/19 21:23 06/24/19 21:23 06/24/19 21:23 06/24/19 21:23 Medical Decision Making - Medical Decision Making 06/24/19 22:18 Patient seen by the advanced practice provider under my supervision. Ancillary testing reviewed as necessary. I agree with plan as outlined by the advanced practice provider. Discharge - Discharge Information Problems reviewed: Yes Clinical Impression/Diagnosis: Pilonidal cyst with abscess Disposition: HOME - Follow up/Referral - Patient Discharge Instructions Patient Printed Discharge Instructions: Pilonidal Cyst Additional Instructions: Apply warm compress to the area. Take warm showers or use sitz bath. You may change the outside gauze if it gets soiled. Keep the packing in place. Return in 2 days for wound check. Take cephalexin as prescribed. Return to the emergency room for any worsening symptoms - Post Discharge Activity Work/Back to School Note: Back to Work
--- NOTE | 2019-06-24 22:35 | PDOC ---
History of Present Illness - General Chief Complaint: Wound Stated Complaint: CYST/COCCYX/LUMBAR/PAIN Time Seen by Provider: 06/24/19 21:17 History Source: Patient - History of Present Illness Initial Comments: 06/24/19 22:32 28-year-old female complaining of sacral area pain and swelling for the last 3 days. Denies pus drainage. No past medical history Past History - Past Medical History Allergies/Adverse Reactions: Allergies Allergy/AdvReac Type Severity Reaction Status Date / Time No Known Allergies Allergy Verified 06/24/19 21:25 Home Medications: Ambulatory Orders Ondansetron [Zofran Odt -] 4 mg SL TID #20 od.tablet 09/10/17 Ibuprofen [Motrin -] 600 mg PO QID #28 tablet 05/12/18 Asthma: No Cancer: No Cardiac Disorders: No COPD: No Diabetes: No HTN: No Seizures: No Thyroid Disease: Yes - Psycho Social/Smoking Cessation Hx Smoking History: Current every day smoker Have you smoked in the past 12 months: Yes Number of Cigarettes Smoked Daily: 3 Information on smoking cessation initiated: No Hx Alcohol Use: No Drug/Substance Use Hx: No Hx Substance Use Treatment: No *Physical Exam - Vital Signs Last Vital Signs Temp Pulse Resp BP Pulse Ox 98.5 F 87 18 108/66 100 06/24/19 21:23 06/24/19 21:23 06/24/19 21:23 06/24/19 21:23 06/24/19 21:23 - Physical Exam General Appearance: Yes: Appropriately Dressed Female Pelvic Exam: positive: other (fluctuant mass warm to touch. ) Procedures - Consent Consent obtained: Verbal - Incision and Drainage I&D Site: Left: Other (pilonidal) Betadine cleansed: Yes Anesthesia: 1% Lidocaine Blade Size: 11 Iodinated Packin/4 in Plain Packing: Yes Progress: 06/24/19 23:01 copiuous amount of pus drainage . packing in place ED Progress Note - Progress Note Progress Note: PIlonidal cyst P: See procedure note Will empirically give cephalexin Discharge - Discharge Information Problems reviewed: Yes Clinical Impression/Diagnosis: Pilonidal cyst with abscess Disposition: HOME - Follow up/Referral - Patient Discharge Instructions Patient Printed Discharge Instructions: Pilonidal Cyst Additional Instructions: Apply warm compress to the area. Take warm showers or use sitz bath. You may change the outside gauze if it gets soiled. Keep the packing in place. Return in 2 days for wound check. Take cephalexin as prescribed. Return to the emergency room for any worsening symptoms - Post Discharge Activity Work/Back to School Note: Back to Work
[2019-06-24] MEDS ORDERED: IBUPROFEN 600 MG TABLET (FP) PO ONE ×2 (23:14→23:16)
[2019-06-25 00:19] VITALS: BP 111/57; PULSE 77; TEMP 98.2
== END 2019-06-24 23:20 | disposition home or self-care (01) ==
LOC: JER 20:53
PROC: 0J990ZZ Drainage of Buttock Subcutaneous Tissue and Fascia, Open Approach (ICD-10-PCS; principal; 2019-06-24)
DX: L05.01 Pilonidal cyst with abscess (principal)
CPT/HCPCS: 10080; 99282-25

== ENCOUNTER 2020-09-16 10:23 | Emergency (ER) | payer OTHER ==
[2020-09-16 10:37] VITALS: PULSE 83; TEMP 97.5; BMI 28.3
[2020-09-16] MEDS ORDERED: SODIUM CHLORIDE 1,000 ML IV STA (10:47)
[2020-09-16] MEDS ORDERED: ACETAMINOPHEN 1000 MG/100 ML VIAL (NON FORMULARY) IVPB ONE (10:47)
[2020-09-16] MEDS ORDERED: ACETAMINOPHEN INJECTION 100 ML IVPB ONE (11:30)
[2020-09-16 12:38] LABS: BASO % 0.5 % (0-2.0); HEMATOCRIT 27.6 % (32.4-45.2); HEMOGLOBIN 9.3 GM/dL (10.7-15.3); LYMPH % 29.8 % (8-40); MCH 30.9 pg (25.7-33.7); MCHC 33.7 g/dl (32.0-36.0); MEAN CELL VOLUME 91.6 fl (80-96); MEAN PLT VOLUME 7.7 fl (7.5-11.1); MONO % 7.3 % (3.8-10.2); NEUT % 59.4 % (42.8-82.8); PLATELET COUNT 442 K/MM3 (134-434); RBC 3.02 M/mm3 (3.60-5.2); RDW 14.5 % (11.6-15.6); WHITE BLOOD COUNT 7.8 K/mm3 (4.0-10.0)
[2020-09-16 12:43] LABS: ARTERIAL BLD GAS O2 SATURATION 92.7 mmHg (95-98); ARTERIAL BLOOD GAS BASE EXCESS 2.7 mmol/L (-2-2); ARTERIAL BLOOD GAS PO2 62.1 mmHg (80-100); ARTERIAL BLOOD GAS pH 7.444 (7.350-7.450)
[2020-09-16 12:56] LABS: INR 1.2 (0.83-1.09); PROTHROMBIN TIME (PATIENT) 14.4 SEC (9.7-13.0)
[2020-09-16 13:04] LABS: ALBUMIN 3.1 g/dl (3.4-5.0); CALCIUM 8.6 mg/dL (8.5-10.1)
[2020-09-16 13:08] LABS: CREATININE 0.5 mg/dL (0.55-1.3)
[2020-09-16 13:09] LABS: BILIRUBIN,TOTAL 1.2 mg/dL (0.2-1); TOT PROT 6.6 g/dl (6.4-8.2)
[2020-09-16 15:24] VITALS: BP 123/69
== END 2020-09-16 16:56 | disposition home or self-care (01) ==
LOC: JER 10:23
PROC: 3E0333Z Introduction of Anti-inflammatory into Peripheral Vein, Percutaneous Approach (ICD-10-PCS; principal; 2020-09-16)
PROC: 3E0337Z Introduction of Electrolytic and Water Balance Substance into Peripheral Vein, Percutaneous Approach (ICD-10-PCS; 2020-09-16)
DX: T81.49XA Infection following a procedure, other surgical site, initial encounter (principal)
CPT/HCPCS: 36415; 36600; 74177-TC; 80053; 82803; 84703; 85025; 85610; 85730; 86850; 86900; 86901; 87040; 99285-25; J0131; Q9967

== ENCOUNTER 2021-10-31 00:20 | Emergency (ER) | payer OTHER ==
[2021-10-31 00:51] VITALS: BMI 26.6
[2021-10-31] MEDS ORDERED: METOCLOPRAMIDE HCL INJECTION 10 MG/2 ML VIAL ONE (01:40)
[2021-10-31 01:41] LABS: BASO % 0.2 % (0-2.0); EOS % 0.2 % (0-4.5); HEMATOCRIT 37.8 % (32.4-45.2); HEMOGLOBIN 12.8 GM/dL (10.7-15.3); LYMPH % 3.9 % (8-40); MCH 30.3 pg (25.7-33.7); MCHC 33.8 g/dl (32.0-36.0); MEAN CELL VOLUME 89.8 fl (80-96); MEAN PLT VOLUME 8.9 fl (7.5-11.1); MONO % 11.8 % (3.8-10.2); NEUT % 83.9 % (42.8-82.8); PLATELET COUNT 194 10^3/uL (134-434); RBC 4.21 M/mm3 (3.60-5.2); RDW 12.7 % (11.6-15.6); WHITE BLOOD COUNT 6.9 K/mm3 (4.0-10.0)
[2021-10-31] MEDS ORDERED: FAMOTIDINE 20 MG/50 ML IVPB 20 MG/50 ML MG IVPB ONE ×2 (01:41→01:42)
[2021-10-31] MEDS ORDERED: SODIUM CHLORIDE 0.9% 500 ML INFUS.BAG IV ONE ×2 (01:42→03:46)
[2021-10-31] MEDS ORDERED: ACETAMINOPHEN 1000 MG/100 ML BAG IVPB ONE (01:42)
[2021-10-31] MEDS ORDERED: METOCLOPRAMIDE HCL INJECTION 10 MG/2 ML VIAL IVPUSH ONE (01:42)
[2021-10-31 02:03] LABS: ALBUMIN 4.2 g/dl (3.4-5.0); BLOOD UREA NITROGEN 11.4 mg/dL (7-18)
[2021-10-31 02:05] LABS: CREATININE 0.9 mg/dL (0.55-1.3)
[2021-10-31 02:07] LABS: BILIRUBIN,TOTAL 0.7 mg/dL (0.2-1); TOT PROT 7.8 g/dl (6.4-8.2)
[2021-10-31 03:35] LABS: EPI CELLS 6 /uL (0-25.1); HYALINE CASTS 2 /uL (0-3.1); PH,URINE 5.5 (5.0-8.0); URINE APPEARANCE CLEAR; URINE BACTERIA 3 /uL (0-1359); URINE BILIRUBIN NEGATIVE (NEGATIVE); URINE COLOR YELLOW; URINE GLUCOSE (UA) NEGATIVE (NEGATIVE); URINE KETONE TRACE (NEGATIVE); URINE LEUK ESTERASE NEGATIVE (NEGATIVE); URINE NITRITE NEGATIVE (NEGATIVE); URINE PROTEIN TRACE (NEGATIVE); URINE RBC 19 /uL (0-23.9); URINE UROBILINOGEN 0.2 mg/dL (0.2-1.0); URINE WBC 7 /uL (0-25.8)
[2021-10-31] MEDS ORDERED: KETOROLAC TROMETHAMINE 30 MG/1 ML VIAL IVPUSH ONE (03:46)
[2021-10-31] MEDS ORDERED: KETOROLAC TROMETHAMINE 30 MG/1 ML VIAL ONE (04:04)
[2021-10-31 04:29] VITALS: BP 116/74; PULSE 86; TEMP 98.1
== END 2021-10-31 04:28 | disposition home or self-care (01) ==
LOC: JER 00:20
PROC: 3E033NZ Introduction of Analgesics, Hypnotics, Sedatives into Peripheral Vein, Percutaneous Approach (ICD-10-PCS; principal; 2021-10-31)
PROC: 3E033GC Introduction of Other Therapeutic Substance into Peripheral Vein, Percutaneous Approach (ICD-10-PCS; 2021-10-31)
PROC: 3E033GC Introduction of Other Therapeutic Substance into Peripheral Vein, Percutaneous Approach (ICD-10-PCS; 2021-10-31)
PROC: 3E0333Z Introduction of Anti-inflammatory into Peripheral Vein, Percutaneous Approach (ICD-10-PCS; 2021-10-31)
DX: U07.1 COVID-19 (principal); R11.2 Nausea with vomiting, unspecified
CPT/HCPCS: 0241U-QW; 36415; 80053; 81003; 83605; 83690; 84443; 84703; 85025; 87086; 96365; 96375; 99285-25

== ENCOUNTER 2022-08-03 09:35 | Emergency (ER) | payer OTHER ==
[2022-08-03 09:45] VITALS: BP 104/64; PULSE 89; RESP 14; TEMP 98.5; BMI 27.9
== END 2022-08-03 11:10 | disposition home or self-care (01) ==
LOC: JER 09:35
DX: N61.1 Abscess of the breast and nipple (principal)
CPT/HCPCS: 99282-25